=== PATIENT | female | born 1975 | race Caucasian/White ===

== ENCOUNTER 2020-02-13 13:40 | Emergency (ER) | payer MEDICAID ==
[~2020-02-13] VITALS: Ht 162.6 cm; Wt 63.5 kg
[2020-02-13 13:42] VITALS: BP_SYST 157
[2020-02-13] MEDS ORDERED: LORazepam 1 MG TABLET PO ONE (14:00)
[2020-02-13] MEDS ORDERED: NACL 0.9% 1,000 ML IV ONE (14:00)
[2020-02-13 14:07] LABS: BASOPHILS % (AUTO) 0.3 % (0.0-2.0); EOSINOPHILS # (AUTO) 0.2 K/uL (0.0-0.4); HEMATOCRIT 41.7 % (36-48); HEMOGLOBIN 14.2 g/dL (12.0-16.0); LYMPHOCYTES # (AUTO) 3.4 K/uL (1.0-5.5); LYMPHOCYTES % (AUTO) 37.5 % (20.5-51.5); MEAN CORPUSCULAR HEMOGLOBIN 31 pg (27-31); MEAN CORPUSCULAR HGB CONC 34 % (32-36); MEAN CORPUSCULAR VOLUME 90 fL (79.0-98.0); MONOCYTES # (AUTO) 0.8 K/uL (0.0-1.0); MONOCYTES % (AUTO) 9.1 % (1.7-9.3); NEUTROPHILS # (AUTO) 4.6 K/uL (1.8-7.7); NEUTROPHILS % (AUTO) 51.1 % (40.0-70.0); PLATELET COUNT (AUTO) 199 K/uL (130-430); RED BLOOD CELL COUNT(AUTO) 4.66 MIL/uL (4.2-6.2); RED CELL DISTRIBUTION WIDTH 12.8 % (9.0-15.0)
[2020-02-13 14:20] LABS: CALCIUM 7.9 mg/dL (8.4-11.0); CREATININE 0.94 mg/dL (0.55-1.30); POTASSIUM 3.7 mmol/L (3.5-5.1)
[2020-02-13 14:26] LABS: ALBUMIN 3.9 g/dL (3.4-4.8); TOTAL BILIRUBIN 0.4 mg/dL (0.0-1.0)
[2020-02-13 15:13] VITALS: BP_SYST 157
== END 2020-02-13 15:16 | disposition home or self-care (01) ==
LOC: SED 13:40
DX: F41.9 Anxiety disorder, unspecified (principal)
CPT/HCPCS: 36415; 80053; 81025; 85025; 93005; 99284; J7030

== ENCOUNTER 2020-11-02 22:16 | Emergency (ER) | payer MEDICAID ==
[~2020-11-02] VITALS: Ht 160 cm; Wt 70.3 kg
[2020-11-02 22:20] VITALS: BP_SYST 138
--- NOTE | 2020-11-02 22:20 | NUR ---
Patient to ER tent for evaluation.
--- NOTE | 2020-11-02 22:23 | NUR ---
RODGER العلي examining patient.
--- NOTE | 2020-11-02 22:23 | NUR ---
pt alert & oriented x4 from home c/o of right sided back pain radiating down her leg that started 2 days ago. pt states pain worsened within last couple of hours. pt 10 out of 10.
--- NOTE | 2020-11-02 22:26 | NUR ---
urine sample collected. pt placed in wheelchair in ER hallway.
[2020-11-02] MEDS ORDERED: KETOROLAC TROMETHAMINE 60 MG/2 ML VIAL IM ONE (22:30)
[2020-11-02 22:44] LABS: BILIRUBIN,URINE NEGATIVE (NEGATIVE); BLOOD, URINE 2+ (NEGATIVE); CLARITY/URINE CLEAR (CLEAR); COLOR,URINE YELLOW (YELLOW); GLUCOSE,URINE NEGATIVE (NEGATIVE); KETONES,URINE TRACE (NEGATIVE); LEUKOCYTE ESTERASE ,URINE NEGATIVE (NEGATIVE); NITRITE, URINE NEGATIVE (NEGATIVE); PROTEIN URINE NEGATIVE (NEGATIVE)
[2020-11-02 22:48] LABS: UROBILINOGEN,URINE >=8 (0.2-1.0)
[2020-11-02 22:57] LABS: BACTERIA,URINE MODERATE /HPF (None Seen)
[2020-11-02] MEDS ORDERED: NACL 0.9% 1,000 ML IV ONE (23:00)
[2020-11-02] MEDS ORDERED: MORPHINE 2 MG/ML INJ. SYRINGE IVP ONE (23:00)
--- NOTE | 2020-11-02 23:05 | NUR ---
# 20 gauge angiocath placed to RIGHT AC. Use of asceptic technique. Opsite placed over site. Blood return noted. Blood and lactic for lab drawn from site. Flushed with 10 cc of normal saline. No evidence of infiltration noted. Patient tolerated well.
--- NOTE | 2020-11-02 23:15 | NUR ---
patient medicated per md orders. pt tolerated well.
--- NOTE | 2020-11-02 23:17 | NUR ---
Patient transported to radiology via wheelchair, accompanied by tech.
[2020-11-02 23:32] LABS: BASOPHILS % (AUTO) 0.3 % (0.0-2.0); EOSINOPHILS # (AUTO) 0.2 K/uL (0.0-0.4); EOSINOPHILS % (AUTO) 1.4 % (0.0-4.0); HEMATOCRIT 39.8 % (36-48); HEMOGLOBIN 13.7 g/dL (12.0-16.0); LYMPHOCYTES # (AUTO) 3.1 K/uL (1.0-5.5); LYMPHOCYTES % (AUTO) 22.7 % (20.5-51.5); MEAN CORPUSCULAR HEMOGLOBIN 31 pg (27-31); MEAN CORPUSCULAR HGB CONC 34 % (32-36); MEAN CORPUSCULAR VOLUME 88 fL (79.0-98.0); MONOCYTES # (AUTO) 0.8 K/uL (0.0-1.0); MONOCYTES % (AUTO) 6.1 % (1.7-9.3); NEUTROPHILS # (AUTO) 9.6 K/uL (1.8-7.7); NEUTROPHILS % (AUTO) 69.5 % (40.0-70.0); PLATELET COUNT (AUTO) 239 K/uL (130-430); RED CELL DISTRIBUTION WIDTH 12.1 % (9.0-15.0); WHITE BLOOD COUNT (AUTO) 13.8 K/uL (4.8-10.8)
--- NOTE | 2020-11-02 23:36 | NUR ---
Returned from radiology, back to [facility]. In stable condition.
[2020-11-02 23:37] LABS: CREATININE 0.77 mg/dL (0.55-1.30); POTASSIUM 3.3 mmol/L (3.5-5.1)
[2020-11-02 23:43] LABS: TOTAL BILIRUBIN 0.6 mg/dL (0.0-1.0)
--- NOTE | 2020-11-03 00:12 | NUR ---
Dr. Barrios at bedside speaking with patient.
[2020-11-03] MEDS ORDERED: methocarbamoL 500 MG TABLET PO ONE (00:15)
[2020-11-03] MEDS ORDERED: methocarbamoL 500 MG TABLET ONE (00:23)
--- NOTE | 2020-11-03 00:26 | NUR ---
patient medicated per md orders. pt tolerated well.
[2020-11-03 00:34] VITALS: BP_SYST 142
--- NOTE | 2020-11-03 00:34 | NUR ---
Patient given written and verbal discharge instructions and verbalizes understanding. ER MD discussed with patient the results and treatment provided. Patient in stable condition. ID arm band removed. IV catheter removed intact and dressing applied, no active bleeding. Rx of ibuprofen and norco given. Patient educated on pain management and to follow up with PMD. Pain Scale 5/10. Opportunity for questions provided and answered. Medication side effect fact sheet provided.
== END 2020-11-03 00:34 | disposition home or self-care (01) ==
LOC: SED 22:16
DX: R10.9 Unspecified abdominal pain (principal); I10 Essential (primary) hypertension; E11.9 Type 2 diabetes mellitus without complications
CPT/HCPCS: 36415; 74176; 76376; 80053; 81000; 85025; 87086; 96361; 96372; 96374; 99284; J1885; J2270; J7030

== ENCOUNTER 2021-05-14 19:20 | Emergency (ER) | payer MEDICAID ==
[~2021-05-14] VITALS: Ht 162.6 cm; Wt 72.6 kg
[2021-05-14 19:25] VITALS: BP_SYST 170
[2021-05-14 20:06] LABS: BILIRUBIN,URINE NEGATIVE (NEGATIVE); COLOR,URINE YELLOW (YELLOW); GLUCOSE,URINE NEGATIVE (NEGATIVE); KETONES,URINE NEGATIVE (NEGATIVE); LEUKOCYTE ESTERASE ,URINE NEGATIVE (NEGATIVE); NITRITE, URINE NEGATIVE (NEGATIVE); PROTEIN URINE TRACE (NEGATIVE)
[2021-05-14 20:12] LABS: BLOOD, URINE TRACE (NEGATIVE); CLARITY/URINE SLIGHTLY HAZY (CLEAR)
[2021-05-14 20:18] LABS: BACTERIA,URINE RARE /HPF (None Seen); MUCUS,URINE None Seen /LPF (None Seen); RBC,URINE 0-3 /HPF (0-3); WBC,URINE 0-3 /HPF (0-3)
[2021-05-14 20:39] LABS: BASOPHILS % (AUTO) 0.4 % (0.0-2.0); EOSINOPHILS # (AUTO) 0.3 K/uL (0.0-0.4); EOSINOPHILS % (AUTO) 2.6 % (0.0-4.0); HEMATOCRIT 36.7 % (36-48); HEMOGLOBIN 12.7 g/dL (12.0-16.0); LYMPHOCYTES # (AUTO) 3.4 K/uL (1.0-5.5); LYMPHOCYTES % (AUTO) 33.1 % (20.5-51.5); MEAN CORPUSCULAR HEMOGLOBIN 31 pg (27-31); MEAN CORPUSCULAR HGB CONC 35 % (32-36); MEAN CORPUSCULAR VOLUME 91 fL (79.0-98.0); MONOCYTES # (AUTO) 0.7 K/uL (0.0-1.0); MONOCYTES % (AUTO) 7.1 % (1.7-9.3); NEUTROPHILS # (AUTO) 5.9 K/uL (1.8-7.7); NEUTROPHILS % (AUTO) 56.8 % (40.0-70.0); PLATELET COUNT (AUTO) 217 K/uL (130-430); RED BLOOD CELL COUNT(AUTO) 4.05 MIL/uL (4.2-6.2); RED CELL DISTRIBUTION WIDTH 13.1 % (9.0-15.0); WHITE BLOOD COUNT (AUTO) 10.4 K/uL (4.8-10.8)
[2021-05-14 20:52] LABS: CALCIUM 8.4 mg/dL (8.4-11.0); CREATININE 0.72 mg/dL (0.55-1.30); POTASSIUM 3.5 mmol/L (3.5-5.1)
[2021-05-14 20:58] LABS: ALBUMIN 3.5 g/dL (3.4-4.8); TOTAL BILIRUBIN 0.3 mg/dL (0.0-1.0)
[2021-05-14] MEDS ORDERED: DIAZEPAM 5 MG TABLET (VALIUM) PO ONE (21:15)
[2021-05-14] MEDS ORDERED: KETOROLAC TROMETHAMINE 30 MG VIAL IVP ONE (21:15)
[2021-05-14] MEDS ORDERED: KETOROLAC TROMETHAMINE 30 MG VIAL IM ONE (21:15)
[2021-05-14] MEDS ORDERED: OXAZ10CA3 PO (22:36)
[2021-05-14] MEDS ORDERED: IBUP-1969 PO (22:39)
[2021-05-14 22:49] VITALS: BP_SYST 144
== END 2021-05-14 22:49 | disposition home or self-care (01) ==
LOC: SED 19:20
DX: M54.41 Lumbago with sciatica, right side (principal)
CPT/HCPCS: 36415; 80053; 81000; 81025; 85025; 96372; 99283; J1885

== ENCOUNTER 2021-05-17 20:46 | Emergency (ER) | payer MEDICAID ==
[~2021-05-17] VITALS: Ht 162.6 cm; Wt 72.6 kg
[~2021-05-17 20:46] MED LIST: IBUP-1969 PO; OXAZ10CA3 PO
[2021-05-17 21:05] VITALS: BP_SYST 152
[2021-05-18] MEDS: KETOROLAC TROMETHAMINE 30 MG VIAL IM ONE (00:13)
[2021-05-18 00:48] LABS: BILIRUBIN,URINE NEGATIVE (NEGATIVE); BLOOD, URINE 2+ (NEGATIVE); COLOR,URINE YELLOW (YELLOW); GLUCOSE,URINE NEGATIVE (NEGATIVE); KETONES,URINE NEGATIVE (NEGATIVE); LEUKOCYTE ESTERASE ,URINE NEGATIVE (NEGATIVE); NITRITE, URINE NEGATIVE (NEGATIVE); PH,URINE 5.5 (5.0-8.0); PROTEIN URINE NEGATIVE (NEGATIVE); UROBILINOGEN,URINE 0.2 (0.2-1.0)
[2021-05-18 00:49] LABS: CLARITY/URINE SLIGHTLY CLOUDY (CLEAR)
[2021-05-18 00:57] LABS: BASOPHILS % (AUTO) 0.2 % (0.0-2.0); EOSINOPHILS # (AUTO) 0.2 K/uL (0.0-0.4); EOSINOPHILS % (AUTO) 1.9 % (0.0-4.0); HEMATOCRIT 36.7 % (36-48); HEMOGLOBIN 12.3 g/dL (12.0-16.0); LYMPHOCYTES # (AUTO) 3.5 K/uL (1.0-5.5); LYMPHOCYTES % (AUTO) 27.9 % (20.5-51.5); MEAN CORPUSCULAR HEMOGLOBIN 31 pg (27-31); MEAN CORPUSCULAR HGB CONC 34 % (32-36); MEAN CORPUSCULAR VOLUME 92 fL (79.0-98.0); MONOCYTES # (AUTO) 0.9 K/uL (0.0-1.0); MONOCYTES % (AUTO) 7.3 % (1.7-9.3); NEUTROPHILS # (AUTO) 7.8 K/uL (1.8-7.7); NEUTROPHILS % (AUTO) 62.7 % (40.0-70.0); PLATELET COUNT (AUTO) 200 K/uL (130-430); RED CELL DISTRIBUTION WIDTH 13.4 % (9.0-15.0); WHITE BLOOD COUNT (AUTO) 12.4 K/uL (4.8-10.8)
[2021-05-18 01:02] LABS: CALCIUM 9.3 mg/dL (8.4-11.0); CREATININE 0.78 mg/dL (0.55-1.30); POTASSIUM 3.7 mmol/L (3.5-5.1)
[2021-05-18 01:08] LABS: ALBUMIN 3.6 g/dL (3.4-4.8); TOTAL BILIRUBIN 0.4 mg/dL (0.0-1.0)
[2021-05-18 01:18] LABS: BACTERIA,URINE FEW /HPF (None Seen); WBC,URINE 0-3 /HPF (0-3)
[2021-05-18] MEDS ORDERED: IBUP-1970 PO (02:49)
[2021-05-18] MEDS ORDERED: METH-634 PO (02:50)
[2021-05-18] MEDS: MORPHINE 2 MG/ML INJ. SYRINGE IM ONE (03:05)
[2021-05-18 03:14] VITALS: BP_SYST 142
== END 2021-05-18 03:14 | disposition home or self-care (01) ==
LOC: SED 20:46
DX: N83.202 Unspecified ovarian cyst, left side (principal); M54.5 Low back pain; Z79.899 Other long term (current) drug therapy
CPT/HCPCS: 36415; 72131; 74176; 76376; 80053; 81000; 81025; 85025; 96372; 99285; J1885; J2270

== ENCOUNTER 2021-10-27 09:21 | Emergency (ER) | payer MEDICAID, SELFPAY ==
[~2021-10-27] VITALS: Ht 160 cm; Wt 63.5 kg
[~2021-10-27 09:21] MED LIST changes: +IBUP-1970 PO; +METH-634 PO
[2021-10-27 09:33] VITALS: BP_SYST 124
--- NOTE | 2021-10-27 09:33 | NUR ---
Pt to remain in the ER tent for evaluation. No ER beds. V/S stable.
--- NOTE | 2021-10-27 09:40 | NUR ---
Pt AAO and ambulatory reporting cough, congestion, and headache X 12 days. Pt reports that she was diagnosed with covid on the . Pt reports that her cough continues to aggrevate her chest. Pt rates pain 6/10 on pain scale.
--- NOTE | 2021-10-27 10:00 | NUR ---
Dr. Kaur to tent to assess.
[2021-10-27] MEDS ORDERED: GUAI100S14 PO (10:29)
[2021-10-27] MEDS ORDERED: METO-290 PO (10:29)
[2021-10-27 10:45] VITALS: BP_SYST 124
--- NOTE | 2021-10-27 10:45 | NUR ---
Patient given written and verbal discharge instructions and verbalizes understanding.Dr. Natasha SOARES MD discussed with patient the results and treatment provided. Patient in stable condition. ID arm band removed. Patient educated on pain management and to follow up with PMD. Pain Scale 0/10.Opportunity for questions provided and answered.
== END 2021-10-27 10:45 | disposition home or self-care (01) ==
LOC: SED 09:21
DX: U07.1 COVID-19 (principal); Z79.899 Other long term (current) drug therapy
CPT/HCPCS: 99281

== ENCOUNTER 2022-10-04 07:42 | Emergency (ER) | payer MEDICAID ==
[~2022-10-04] VITALS: Ht 162.6 cm; Wt 65.8 kg
[~2022-10-04 07:42] MED LIST changes: +GUAI100S14 PO; +METO-290 PO
[2022-10-04 07:56] VITALS: BP_SYST 157
[2022-10-04 08:35] LABS: BASOPHILS # (AUTO) 0.1 K/uL (0.0-0.2); BASOPHILS % (AUTO) 0.6 % (0.0-2.0); EOSINOPHILS # (AUTO) 0.1 K/uL (0.0-0.4); EOSINOPHILS % (AUTO) 1.5 % (0.0-4.0); HEMATOCRIT 40.3 % (36-48); LYMPHOCYTES # (AUTO) 2.5 K/uL (1.0-5.5); LYMPHOCYTES % (AUTO) 25.3 % (20.5-51.5); MEAN CORPUSCULAR HEMOGLOBIN 31 pg (27-31); MEAN CORPUSCULAR HGB CONC 35 % (32-36); MEAN CORPUSCULAR VOLUME 89 fL (79.0-98.0); MONOCYTES # (AUTO) 0.6 K/uL (0.0-1.0); MONOCYTES % (AUTO) 6.2 % (1.7-9.3); NEUTROPHILS # (AUTO) 6.6 K/uL (1.8-7.7); NEUTROPHILS % (AUTO) 66.4 % (40.0-70.0); PLATELET COUNT (AUTO) 231 K/uL (130-430); RED BLOOD CELL COUNT(AUTO) 4.53 MIL/uL (4.2-6.2); RED CELL DISTRIBUTION WIDTH 13.4 % (9.0-15.0)
[2022-10-04 08:53] LABS: ANION GAP 12 (5-15); CALCIUM 8.8 mg/dL (8.4-11.0); CHLORIDE 106 mmol/L (98-107); CREATININE 0.74 mg/dL (0.55-1.30); GLUCOSE 137 mg/dL (70-99); UREA NITROGEN, BLOOD 13 mg/dL (8-21)
[2022-10-04 08:55] LABS: GFR AFRICAN AMERICAN 108 mL/min (>90)
[2022-10-04 08:57] LABS: ALANINE AMINOTRANSFERASE 48 U/L (12-78); ALBUMIN 4.4 g/dL (3.4-4.8); AMYLASE 95 U/L (0-100); ASPARTATE AMINOTRANSFERASE 19 U/L (10-37); LIPASE 78 U/L (73-393); TOTAL BILIRUBIN 0.6 mg/dL (0.0-1.0)
[2022-10-04 09:11] LABS: C-REACTIVE PROTEIN QUANT < 0.2 mg/dL (0-0.5)
--- NOTE | 2022-10-04 10:15 | NUR ---
RECEIVED PT FROM TANIA ZHENG. PT BIB WITH C/O N/V SINCE 0400 THIS MORNING. PT IS AAOX4. NORMAL S1S2. ABDOMEN SOFT, NONTENDER, NONDISTENDED. SKIN WARM, INTACT, NO EDEMA, DISTAL PULSES NORMAL. DENIES PAIN. SIDERAILS UP X2. AT BEDSIDE.
[2022-10-04] MEDS ORDERED: IBUP-1969 PO (11:25)
[2022-10-04] MEDS ORDERED: OMEP20CA15 PO (11:25)
[2022-10-04] MEDS ORDERED: HYDR-3917 PO (11:25)
--- NOTE | 2022-10-04 11:25 | NUR ---
URINE OBTAINED AND TAKEN TO LAB.
[2022-10-04 11:44] LABS: BILIRUBIN,URINE NEGATIVE (NEGATIVE); CLARITY/URINE SL CLOUDY (CLEAR); COLOR,URINE YELLOW (YELLOW); GLUCOSE,URINE NEGATIVE (NEGATIVE); KETONES,URINE 2+ (NEGATIVE); LEUKOCYTE ESTERASE ,URINE NEGATIVE (NEGATIVE); NITRITE, URINE NEGATIVE (NEGATIVE); PH,URINE 8.5 (5.0-8.0); PROTEIN URINE TRACE (NEGATIVE); UROBILINOGEN,URINE 0.2 (0.2-1.0)
[2022-10-04 11:46] LABS: BLOOD, URINE TRACE (NEGATIVE)
--- NOTE | 2022-10-04 11:46 | NUR ---
URINE NEGATIVE. DIP STICK RESULTS REPORTED TO DR. KIM BY EMT.
[2022-10-04 12:06] LABS: BACTERIA,URINE None Seen /HPF (None Seen); MUCUS,URINE None Seen /LPF (None Seen); WBC,URINE 0-3 /HPF (0-3)
--- NOTE | 2022-10-04 12:16 | NUR ---
Patient given written and verbal discharge instructions and verbalizes understanding. ER MD DR KIM discussed with patient the results and treatment provided. Patient in stable condition. ID arm band removed. Rx of NORCO, MOTRIN OMPEZERALOE given. Patient educated on pain management and to follow up with PMD. Pain Scale 6/10. Opportunity for questions provided and answered. Medication side effect fact sheet provided.
[2022-10-04 12:17] VITALS: BP_SYST 157
== END 2022-10-04 12:16 | disposition home or self-care (01) ==
LOC: SED 07:42
DX: R10.31 Right lower quadrant pain (principal); R11.10 Vomiting, unspecified
CPT/HCPCS: 36415; 76376; 80053; 81000; 81025; 82150; 83690; 84703; 85025; 86140; 99284

== ENCOUNTER 2024-06-28 17:21 | Emergency (ER) | payer SELFPAY ==
[~2024-06-28 17:21] MED LIST changes: +HYDR-3917 PO; +OMEP20CA15 PO
== END 2024-06-28 21:37 | disposition left against medical advice (07) ==
LOC: SED 17:21
DX: R10.9 Unspecified abdominal pain (principal); Z53.21 Procedure and treatment not carried out due to patient leaving prior to being seen by health care provider